=== PATIENT | female | born 1945 | race Caucasian/White ===

== ENCOUNTER 2018-02-18 17:56 | Observation (INO) | payer OTHER ==
[~2018-02-18] VITALS: Ht 172.7 cm; Wt 70.1 kg
[2018-02-18 19:32] LABS: BASOPHIL (%) 0.5 % (0-1); EOSINOPHIL (%) 0.9 % (0-5); EOSINOPHIL COUNT 0.1 K/uL (0-0.3); HEMATOCRIT 37.8 % (36.0-46.0); HEMOGLOBIN 12.9 G/DL (11.9-15.5); IMMATURE GRANULOCYTE (%) 0.4 % (0.0-0.7); LYMPHOCYTE (%) 7.5 % (15-42); LYMPHOCYTE COUNT 0.6 K/uL (1.0-2.8); MCH 31.5 PG (29.0-34.0); MCHC 34.1 G/DL (30.0-36.0); MCV 92.2 FL (83-99); MONOCYTE COUNT 0.5 K/uL (0-0.8); NEUTROPHIL (%) 83.7 % (45-76); NEUTROPHIL COUNT 6.4 K/uL (1.8-6.4); PLATELET COUNT 167 K/uL (156-360); RBC DIS.WIDTH-CV 11.9 % (11.8-14.6); RBC DIS.WIDTH-SD 40.3 % (39-53); WHITE BLOOD COUNT 7.6 K/uL (4.1-10.2)
[2018-02-18 19:44] LABS: ALBUMIN 4.4 g/dL (3.2-4.8); CHLORIDE 102 mEq/L (99-109)
[2018-02-18 19:45] LABS: POTASSIUM 3.9 mEq/L (3.7-5.4); SODIUM 138 mEq/L (136-147)
[2018-02-18 19:47] LABS: GLUCOSE 105 mg/dL (70-99); TOTAL PROTEIN 6.6 g/dL (6.4-8.3)
[2018-02-18 19:49] LABS: TOTAL BILIRUBIN 0.6 mg/dL (0.0-1.0)
[2018-02-18 19:50] LABS: ALKALINE PHOSPHATASE 66 IU/L (3-129); CREATININE 0.8 mg/dL (0.6-1.3); GFR ESTIMATE (CALCULATED) > 59 mL/min/
[2018-02-18 19:52] LABS: AST (GOT) 35 IU/L (2-34); UREA NITROGEN (BUN) 16 mg/dL (9-23)
[2018-02-18 19:53] LABS: ALT (GPT) 31 IU/L (3-49)
[2018-02-18] MEDS ORDERED: LIPITOR20 MG PO (22:08)
[2018-02-18] MEDS ORDERED: WELLBUTRIN XL300 MG PO (22:08)
[2018-02-18] MEDS ORDERED: BUSPAR15 MG PO (22:08)
[2018-02-18] MEDS ORDERED: ZOLOFT100 MG PO (22:08)
[2018-02-19 00:33] VITALS: BP 129/83
[2018-02-19 05:17] VITALS: BP 115/69
[2018-02-19 07:04] LABS: HEMATOCRIT 34.3 % (36.0-46.0); HEMOGLOBIN 11.4 G/DL (11.9-15.5); MCH 30.7 PG (29.0-34.0); MCHC 33.2 G/DL (30.0-36.0); MCV 92.5 FL (83-99); PLATELET COUNT 163 K/uL (156-360); RBC DIS.WIDTH-CV 12.2 % (11.8-14.6); RBC DIS.WIDTH-SD 41.4 % (39-53); RED BLOOD COUNT 3.71 M/uL (3.80-5.20); WHITE BLOOD COUNT 7.3 K/uL (4.1-10.2)
[2018-02-19 07:25] LABS: CHLORIDE 103 MEQ/L (99-109); CREATININE 0.8 MG/DL (0.6-1.3); GFR ESTIMATE (CALCULATED) > 59 mL/min/; GLUCOSE 105 mg/dL (70-99); POTASSIUM 3.5 MEQ/L (3.7-5.4); SODIUM 139 MEQ/L (136-147); UREA NITROGEN (BUN) 13 mg/dL (9-23)
[2018-02-19 08:29] VITALS: BP 109/71
[2018-02-19 11:51] VITALS: BP 125/80
[2018-02-19] MEDS ORDERED: ENDOCET 5-3251 EACH PO (14:38)
[2018-02-19] MEDS ORDERED: CYANOCOBALAM1000 MCG PO (16:05)
[2018-02-19 16:29] VITALS: BP 112/57
[2018-02-19 19:52] VITALS: BP 149/75
[2018-02-20 00:15] VITALS: BP 107/64
[2018-02-20 07:41] VITALS: BP 105/67
== END 2018-02-20 12:14 ==
LOC: EME 17:56 → EDOF 22:51 → 3EAST 22:51 → ENRESERV 22:53 → 3EAST 02-19 00:19
PROVIDERS: Emergency Medicine; Hospitalist
DX: S72.112A Displaced fracture of greater trochanter of left femur, initial encounter for closed fracture (principal); S52.232A Displaced oblique fracture of shaft of left ulna, initial encounter for closed fracture; M85.80 Other specified disorders of bone density and structure, unspecified site; E78.00 Pure hypercholesterolemia, unspecified; F32.9 Major depressive disorder, single episode, unspecified; Z79.82 Long term (current) use of aspirin; E78.5 Hyperlipidemia, unspecified; W01.0XXA Fall on same level from slipping, tripping and stumbling without subsequent striking against object, initial encounter; Y92.481 Parking lot as the place of occurrence of the external cause; Z88.2 Allergy status to sulfonamides
CPT/HCPCS: 72192; 73080; 73090; 73502; 73552; 73721; 80048; 80053; 82306; 82607; 85025; 85027; 93005; 99281; 99285; G0378; G8978 GP CK; G8979 GP CI; G8980 CJ; G8987 GO CJ; G8988 CI; G8989 CJ; J1644; J3010; J7030

== ENCOUNTER 2018-02-20 11:38 | Inpatient (IN) | payer OTHER ==
[~2018-02-20] VITALS: Ht 172.7 cm; Wt 64.7 kg
[~2018-02-20 11:38] MED LIST: BUSPAR15 MG PO; CYANOCOBALAM1000 MCG PO; ENDOCET 5-3251 EACH PO; LIPITOR20 MG PO; WELLBUTRIN XL300 MG PO; ZOLOFT100 MG PO
[2018-02-20 12:55] VITALS: BP 112/67
[2018-02-20 23:33] VITALS: BP 120/77
[2018-02-21 06:57] LABS: HEMOGLOBIN 11.1 G/DL (11.9-15.5); MCH 30.4 PG (29.0-34.0); MCHC 32.6 G/DL (30.0-36.0); MCV 93.2 FL (83-99); PLATELET COUNT 158 K/uL (156-360); RBC DIS.WIDTH-CV 11.9 % (11.8-14.6); RBC DIS.WIDTH-SD 41.1 % (39-53); RED BLOOD COUNT 3.65 M/uL (3.80-5.20); WHITE BLOOD COUNT 5.9 K/uL (4.1-10.2)
[2018-02-21 07:30] LABS: ALKALINE PHOSPHATASE 51 IU/L (3-129); ALT (GPT) 16 IU/L (3-49); AST (GOT) 17 IU/L (2-34); CHLORIDE 103 MEQ/L (99-109); CREATININE 0.7 MG/DL (0.6-1.3); GFR ESTIMATE (CALCULATED) > 59 mL/min/; GLUCOSE 124 mg/dL (70-99); POTASSIUM 3.8 MEQ/L (3.7-5.4); SODIUM 139 MEQ/L (136-147); TOTAL BILIRUBIN 0.6 MG/DL (0.0-1.0); UREA NITROGEN (BUN) 10 mg/dL (9-23)
[2018-02-21 15:21] VITALS: BP 132/60
[2018-02-22 05:10] VITALS: BP 116/71
[2018-02-22 07:34] LABS: A/G RATIO 1.8 (1.1-1.8); ALBUMIN 3.9 G/DL (3.4-5.0); GLOBULINS 2.2 G/DL (2.3-3.5); TOTAL PROTEIN 6.1 G/DL (6.4-8.2)
[2018-02-22 15:18] VITALS: BP 131/75
[2018-02-23 05:11] VITALS: BP 133/76
[2018-02-23 07:30] LABS: BASOPHIL (%) 0.7 % (0-1); EOSINOPHIL COUNT 0.1 K/uL (0-0.3); HEMATOCRIT 33.9 % (36.0-46.0); IMMATURE GRANULOCYTE (%) 0.4 % (0.0-0.7); LYMPHOCYTE (%) 11.7 % (15-42); LYMPHOCYTE COUNT 0.6 K/uL (1.0-2.8); MCH 30.6 PG (29.0-34.0); MCHC 32.4 G/DL (30.0-36.0); MCV 94.4 FL (83-99); MONOCYTE (%) 11.4 % (3-12); MONOCYTE COUNT 0.6 K/uL (0-0.8); NEUTROPHIL (%) 73.8 % (45-76); PLATELET COUNT 192 K/uL (156-360); RBC DIS.WIDTH-CV 11.9 % (11.8-14.6); RBC DIS.WIDTH-SD 41.5 % (39-53); RED BLOOD COUNT 3.59 M/uL (3.80-5.20); WHITE BLOOD COUNT 5.4 K/uL (4.1-10.2)
[2018-02-23 07:56] LABS: CHLORIDE 103 MEQ/L (99-109); CREATININE 0.7 MG/DL (0.6-1.3); GFR ESTIMATE (CALCULATED) > 59 mL/min/; GLUCOSE 120 mg/dL (70-99); POTASSIUM 4.4 MEQ/L (3.7-5.4); SODIUM 143 MEQ/L (136-147); UREA NITROGEN (BUN) 11 mg/dL (9-23)
[2018-02-23 16:00] VITALS: BP 112/71
[2018-02-24 05:55] VITALS: BP 120/76
[2018-02-24 12:08] LABS: ALBUMIN 3.52 G/DL (3.6-4.9); ALPHA-1 GLOBULIN 0.46 G/DL (0.15-0.40); ALPHA-2 GLOBULIN 0.93 G/DL (0.45-0.85); BETA-GLOBULIN 0.65 G/DL (0.65-1.15); GAMMA-GLOBULIN 0.54 G/DL (0.60-1.35)
[2018-02-24 15:39] VITALS: BP 116/63
[2018-02-25 05:01] VITALS: BP 124/85
[2018-02-25 15:33] VITALS: BP 107/61
[2018-02-26 05:15] VITALS: BP 121/70
[2018-02-26 10:47] LABS: Flow Clinical Information NOT PROVIDED (()); Flow Number of Markers 22 (()); Flow Spec Viability 94 % (()); Flow Specimen Type PERIPHERAL BLOOD (())
[2018-02-26 15:10] VITALS: BP 108/56
[2018-02-27 05:45] VITALS: BP 114/58
[2018-02-27 15:40] VITALS: BP 102/68
[2018-02-28 03:48] VITALS: BP 100/60
[2018-02-28] MEDS ORDERED: POLYETHYLENE GL17 GM PO (10:50)
[2018-02-28] MEDS ORDERED: SENNA PLUS TAB1 EACH PO (10:50)
[2018-02-28] MEDS ORDERED: CALTRATE PLUS1 EACH PO (10:51)
[2018-02-28] MEDS ORDERED: ECOTRIN325 MG PO (10:54)
== END 2018-02-28 13:40 | disposition home health service (06) | DRG 561 ==
LOC: 3WEST 11:38 → ENRESERV 12:28 → 3WEST 12:32
PROVIDERS: Family Medicine Sports Medicine; Internal Medicine Hematology & Oncology; Physical Medicine & Rehabilitation Pain Medicine
PROC: F07M0ZZ Range of Motion and Joint Mobility Treatment of Musculoskeletal System - Whole Body (ICD-10-PCS; principal; 2018-02-20)
DX: S72.092D Other fracture of head and neck of left femur, subsequent encounter for closed fracture with routine healing (principal); W01.0XXD Fall on same level from slipping, tripping and stumbling without subsequent striking against object, subsequent encounter; S52.202D Unspecified fracture of shaft of left ulna, subsequent encounter for closed fracture with routine healing; M85.89 Other specified disorders of bone density and structure, multiple sites; R26.9 Unspecified abnormalities of gait and mobility; E78.5 Hyperlipidemia, unspecified; F41.9 Anxiety disorder, unspecified; F32.9 Major depressive disorder, single episode, unspecified; D64.9 Anemia, unspecified; M25.422 Effusion, left elbow; E87.6 Hypokalemia; Z88.2 Allergy status to sulfonamides; D72.810 Lymphocytopenia; R93.7 Abnormal findings on diagnostic imaging of other parts of musculoskeletal system; K59.00 Constipation, unspecified; M85.80 Other specified disorders of bone density and structure, unspecified site
CPT/HCPCS: 78306; 80048; 80053; 83883 90; 84165; 85025; 85027; 86334; 97110 GO; 97530 GP; A9503; J1644